=== PATIENT | female | born 1965 | race Caucasian/White ===

== ENCOUNTER 2022-04-06 17:53 | Emergency (ER) | payer SELFPAY ==
[2022-04-06 18:05] VITALS: BP 212/92; PULSE 74; RESP 16; TEMP 37.3; O2SAT 97
--- NOTE | 2022-04-06 19:26 | ECG_ITS ---
[facility] Test Date: 2022-04-06 Pat Name: Melissa Burton Department: Room: Gender: Female Drill Operator: : 1965 Requested By: Octavio Emmanuel Order Number: [id number] Oz MD: Nito Watt M.D. Measurements Intervals [place] Rate: 73 P: 22 AR: 147 QRS: -5 QRSD: 104 T: 49 QT: 394 QTc: 435 Interpretive Statements SINUS RHYTHM INCOMPLETE RIGHT BUNDLE BRANCH BLOCK [90+ ms QRS DURATION, TERMINAL R IN V1/V2, 40+ ms S IN I/aVL/V4/V5/V6] No previous ECG available for comparison Electronically Signed On 04-07-2022 18:52:36 CDT by Nito Watt M.D. [id number]
--- NOTE | 2022-04-06 19:27 | XRR_ITS ---
PROCEDURE INFORMATION: Exam: XR Chest Exam date and time: 04/06/2022 9:02 PM Age: 56 years old Clinical indication: Angina; Additional info: Chest pain TECHNIQUE: Imaging protocol: Radiologic exam of the chest. Views: 1 view. COMPARISON: No relevant prior studies available. FINDINGS: Lungs: Unremarkable. No consolidation. Pleural spaces: Unremarkable. No pleural effusion. No pneumothorax. Heart/Mediastinum: Unremarkable. No cardiomegaly. Bones/joints: Unremarkable. XR/XR chest 1V portable [id number] IMPRESSION: No acute findings.
[2022-04-06 21:13] LABS: Basophils # 0.1 10^3/uL (0.0-0.1); Basophils % 0.6 %; Hematocrit 40.5 % (37.0-47.0); Hemoglobin 14.7 g/dL (11.5-15.3); Lymphocytes # 3.2 10^3/uL (0.8-4.8); Lymphocytes % 33.8 %; Mean Corpuscular HGB Conc 36.3 g/dL (30.0-36.0); Mean Corpuscular Hemoglobin 31.5 pg (28.0-34.0); Mean Corpuscular Volume 86.7 fl (81-99); Mean Platelet Volume 9.4 fL (7.4-10.4); Monocytes # 0.5 10^3/uL (0.2-0.9); Monocytes % 4.8 %; Neutrophils # 5.74 10^3/uL (1.8-7.7); Neutrophils % 60.5 %; Nucleated Red Blood Cells % 0 %; Platelet Count 445 10^3/cmm (130-400); Red Blood Count 4.67 10^6/uL (4.1-5.3); Red Cell Distribution Width 12.2 % (12.1-15.1); White Blood Count 9.5 10^3/uL (4.0-10.0)
--- NOTE | 2022-04-06 21:14 | ED_ITS ---
HPI - General Adult General: Chief complaint: Anxiety Stated complaint: SOB, Heart palpitation Time Seen by Provider: 04/06/22 20:57 History of Present Illness: 56-year-old female presenting today with stress and anxiety. Patient notes she has been stressed out since her in December. She notes that she is having constant feelings of anxiety, claustrophobia, and frequent hot flashes. Patient saw an outpatient physician who noted she is also probably going through menopause and was recommended to start some hormonal replacement therapy. She notes that despite this she has continued symptoms. She denies chest pain or shortness of breath. She denies abdominal pain. She denies pain or swelling her lower extremities. She denies history of blood clots. She denies recent travel or recent surgeries. Prior to her 's she had none of these current symptoms. She is not on any medications. Review of Systems General: Reports: 10 or more systems reviewed and unremarkable except in HPI and below Physical Exam Const: COMMON NORMALS: no acute distress, patient oriented x3 and alert GENERAL APPEARANCE: cooperative ORIENTATION/CONSCIOUSNESS: Yes awake, Yes oriented to person, Yes oriented to place and Yes oriented to time HENMT: COMMON NORMALS: normocephalic, atraumatic, external ears normal, Normal external nose present and moist oral mucous membranes HEAD & SCALP: normal to inspection, normocephalic and atraumatic NOSE: Normal external nose present GENERAL EAR: hearing grossly impaired EXTERNAL EAR: Yes external ears normal Eye: COMMON NORMALS: Equal, round and reactive pupils present, EOMs intact bilaterally, conjunctivae normal and no scleral icterus GENERAL EYE: appearance normal, both eyes and all related structures EYELID: eyelids normal CONJUNCTIVA: Yes conjunctivae normal SCLERA: sclerae normal PUPIL: Yes Equal, round and reactive pupils present Neck/C-Spine: COMMON NORMALS: full ROM, supple and no JVD GENERAL: Yes normal visual inspection Lymph: LYMPHATIC: no lymphadenopathy noted and no lymphedema noted Chest: COMMONS NORMALS: normal inspection of the chest Resp: COMMON NORMALS: normal respiratory effort, No retractions and No use of accessory muscles Cardio: COMMON NORMALS: no JVD, regular rate and regular rhythm RATE: regular rate RHYTHM: regular rhythm GI: COMMON NORMALS: Normal to inspection, nondistended, normoactive bowel sounds present : COMMON NORMALS: Yes no CVA tenderness BLADDER/KIDNEY EXAM: Yes no CVA tenderness Back/Pelvis: COMMON NORMALS: no CVA tenderness and thoracic and lumbar spine normal to inspection Extremity: COMMON NORMALS: normal to inspection, full ROM and capillary refill normal GENERAL: Yes normal exam except as noted Neuro: COMMON NORMALS: patient oriented x3, CN's II-XII intact bilaterally, moves all extremities, no focal motor deficits, no sensory deficits noted and gait normal SENSORIUM/ORIENTATION: Yes alert, Yes oriented to person, Yes oriented to place and Yes oriented to time Psych: COMMON NORMALS: mental status grossly normal, Normal thought process present, cooperative and normal affect THOUGHT PROCESS: Normal thought process present Skin: COMMON NORMALS: no rashes or lesions noted and no wounds GENERAL SKIN EXAM: no rashes or lesions noted Course Vital Signs: Vital signs: Vital Signs Temperature 99.1 F 04/06/22 18:05 Pulse Rate 84 04/06/22 22:15 Respiratory Rate 16 04/06/22 22:15 Blood Pressure 187/88 04/06/22 22:15 Pulse Oximetry 99 04/06/22 22:15 Oxygen Delivery Me thod 04/06/22 18:05 [facility] - General Adult Medical Decision Making 56-year-old female presenting today with acute stress reaction. EKG without evidence of acute ischemia or other significant abnormality. Labs are unremarkable. Patient was given outpatient psychiatry follow-up. She was given strict return precautions. No evidence of HI or SI. Recommended to return to the ED for any questions or concerns. Lab Data : 04/06/22 21:10 04/06/22 21:10 Radiology Impressions Chest X-Ray 04/06/22 19:27 IMPRESSION: No acute findings. Laboratory Results WBC 9.5 10^3/uL (4.0-10.0) 04/06/22 21:10 RBC 4.67 10^6/uL (4.1-5.3) 04/06/22 21:10 Hgb 14.7 g/dL (11.5-15.3) 04/06/22 21:10 Hct 40.5 % (37.0-47.0) 04/06/22 21:10 MCV 86.7 fl (81-99) 04/06/22 21:10 MCH 31.5 pg (28.0-34.0) 04/06/22 21:10 MCHC 36.3 g/dL (30.0-36.0) H 04/06/22 21:10 RDW 12.2 % (12.1-15.1) 04/06/22 21:10 Plt Count 445 10^3/cmm (130-400) H 04/06/22 21:10 MPV 9.4 fL (7.4-10.4) 04/06/22 21:10 Neut % (Auto) 60.5 % 04/06/22 21:10 Lymph % (Auto) 33.8 % 04/06/22 21:10 Page % (Auto) 4.8 % 04/06/22 21:10 Eos % (Auto) 0.0 % 04/06/22 21:10 Baso % (Auto) 0.6 % 04/06/22 21:10 Neut # (Auto) 5.74 10^3/uL (1.8-7.7) 04/06/22 21:10 Lymph # (Auto) 3.2 10^3/uL (0.8-4.8) 04/06/22 21:10 Page # (Auto) 0.5 10^3/uL (0.2-0.9) 04/06/22 21:10 Eos # (Auto) 0.0 10^3/uL (0.0-0.8) 04/06/22 21:10 Baso # (Auto) 0.1 10^3/uL (0.0-0.1) 04/06/22 21:10 Nucleated RBC % (auto) 0 % 04/06/22 21:10 Nucleated RBCs # 0.0 /100WBC 04/06/22 21:10 Sodium 144 mmol/L (136-145) 04/06/22 21:10 Potassium 3.6 mmol/L (3.5-5.1) 04/06/22 21:10 Chloride 107 mmol/L (98-107) 04/06/22 21:10 Carbon Dioxide 25 mmol/L (22-29) 04/06/22 21:10 Anion Gap 15.6 (5-19) 04/06/22 21:10 BUN 9 mg/dL (6-20) 04/06/22 21:10 Creatinine 0.8 mg/dL (0.5-0.9) 04/06/22 21:10 GFR Calculation 74.5 mL/min (90-130) L 04/06/22 21:10 Glucose 93 mg/dL (65-115) 04/06/22 21:10 Calculated Osmolality 296 mOsm/kg (285-295) H 04/06/22 21:10 Calcium 9.9 mg/dL (8.5-10.5) 04/06/22 21:10 Total Bilirubin 0.6 mg/dL (0.15-1.2) 04/06/22 21:10 AST 22 U/L (0-32) 04/06/22 21:10 ALT 19 U/L (0-33) 04/06/22 21:10 Alkaline Phosphatase 127 IU/L (35-105) H 04/06/22 21:10 Troponin T Baseline 6 ng/L (0-10) 04/06/22 21:10 NT-Pro-B Natriuret Pep 202 pg/mL (0-125) H 04/06/22 21:10 Total Protein 7.6 g/dL (6.6-8.7) 04/06/22 21:10 Albumin 4.4 g/dL (3.5-5.2) 04/06/22 21:10 Globulin 3.2 g/dL (1.3-4.6) 04/06/22 21:10 Lipase 57 U/L (13-60) 04/06/22 21:10 Discharge Plan Discharge Patient Disposition: Home Clinical Impression: Acute anxiety Condition: Stable Discharge Orders: Discharge ED (Routine); Ordered 04/06/22 Ordered By: Sreekanth Tobar Referrals: Rishi Terrazas MD [Physician] - 4-7 days Discharge Diet: Usual diet Discharge Activity: Resume usual activity Coding Level of Care Code ED Barrel Rifler Operator for Chg Fwd Exam Comprehensive
[2022-04-06 21:44] LABS: Troponin(5th) Baseline 6 ng/L (0-10)
[2022-04-06 21:52] LABS: Alanine Aminotransferase 19 U/L (0-33); Albumin Level 4.4 g/dL (3.5-5.2); Alkaline Phosphatase 127 IU/L (35-105); Anion Gap 15.6 (5-19); Aspartate Amino Transferase 22 U/L (0-32); Blood Urea Nitrogen 9 mg/dL (6-20); Calcium 9.9 mg/dL (8.5-10.5); Carbon Dioxide 25 mmol/L (22-29); Chloride 107 mmol/L (98-107); Globulin 3.2 g/dL (1.3-4.6); Glomerular Filtration Rate 74.5 mL/min (90-130); Glucose 93 mg/dL (65-115); Lipase 57 U/L (13-60); NT Pro B Type Natriuretic Pept 202 pg/mL (0-125); Osmolality Calculated 296 mOsm/kg (285-295); Potassium 3.6 mmol/L (3.5-5.1); Sodium 144 mmol/L (136-145); Total Bilirubin 0.6 mg/dL (0.15-1.2); Total Protein 7.6 g/dL (6.6-8.7)
[2022-04-06 22:15] VITALS: BP 187/88; PULSE 84; RESP 16; O2SAT 99
--- NOTE | 2022-04-09 11:44 | DCPLANNER ---
Addendum entered by Hiral Holder 04/12/22 16:20: Patient had a follow up appointment scheduled for 04.10.22 with [facility] in [facility] to start services - patient did attend appointment. Original Note: horse farm manager had message to schedule a follow up appointment for patient with [facility] for depression. horse farm manager sent patients information to Christin Johnston at [facility]. Patients information will be printed and reviewed. Clinic will call patient with appointment information.
== END 2022-04-06 22:16 | disposition home or self-care (01) ==
PROVIDERS: Emergency Medicine; Emergency Provider Emergency Medicine
DX: F41.9 Anxiety disorder, unspecified (principal)
CPT/HCPCS: 71045; 80053; 83690; 83880; 84484; 85025; 93005; 99285

== ENCOUNTER → 2022-07-19 14:31 | Outpatient (BNVA) | payer OTHER, SELFPAY | PROVIDERS: Visit Provider Registered Nurse | DX: Z79.899 Other long term (current) drug therapy (principal) | CPT/HCPCS: 80053; 80061; 83036; 84443; 85025 ==